=== PATIENT | male | born 1960 | race African-American/Black ===

== ENCOUNTER 2020-05-10 09:35 | Observation (INO) | payer OTHER, SELFPAY ==
--- NOTE | 2020-05-10 10:54 | RAD ---
RADIOGRAPH CHEST 1 VIEW: DATE: 05/10/2020 HISTORY: 60-year-old male with chest pain FINDINGS: There are no airspace densities, pulmonary edema, pneumothorax, or cardiomegaly. The lateral costophr enic angles are sharp. IMPRESSION: No acute cardiopulmonary findings.
--- NOTE | 2020-05-10 11:28 | CT ---
CT BRAIN NONCONTRAST: DATE: 05/10/2020 HISTORY: 60-year-old male with history of smoking and crack cocaine use presents with headache, right upper ex tremity and lower extremity numbness, and right facial numbness. Concern for stroke. FINDINGS: There is no evidence of acute intra-axial or extra-axial hemorrhage. There is no midline shift or any other mass effect. There is no extra-axial fluid collection. The ventricles are normal in size and configuration. The tympanomastoid cavities, and the upper portions of the paranasal sinuses included in these images, are grossly clear. Calvarium is intact. IMPRESSION: Normal.
[2020-05-10 11:33] LABS: #Basophils 0.1 thou/uL (0.0-0.2); #Eosinphils 0.1 thou/uL (0.0-0.7); #Lymphocytes 1.5 thou/uL (1.20-3.40); #Monocytes 0.5 thou/uL (0.11-0.59); #Neutrophils 6.2 thou/uL (1.40-6.50); %Basophils 0.9 % (0.0-1.0); %Eosinophils 0.6 % (0.0-10.0); %Lymphocytes 17.6 % (21.0-51.0); %Monocytes 5.7 % (0.0-10.0); %Neutrophils 75.2 % (42.0-75.0); Hemoglobin 17.3 g/dL (14.0-18.0); Mean Corpuscular HGB CONC 31.5 g/dL (32.0-36.0); Mean Corpuscular Hemoglobin 29.8 pg (27.0-31.0); Mean Corpuscular Volume 94.8 fL (78.0-98.0); Platelet Count 331 thou/uL (130-400); RBC Distribution Width 12.8 % (11.5-14.5); Red Blood Cell (RBC) Count 5.81 mill/uL (4.70-6.10); White Blood Cell (WBC) Count 8.2 thou/uL (4.8-10.8)
[2020-05-10 11:34] LABS: Bilirubin Negative (Negative); Blood, Urine Negative (Negative); Clarity Clear (Clear); Glucose, Urine (Dipstick) Normal (Negative); Ketone, Urine 60 mg/dL (Negative); Leukocyte Negative Leu/uL (Negative); Nitrite Negative (Negative); Protein, Urine (Dipstick) 20 mg/dL (Neg-Trace); Specific Gravity, Urine 1.035 (1.002-1.036); Urobilinogen Normal mg/dL (Less than 2); pH, Urine 5.5 (5.0-9.0)
[2020-05-10] MEDS ORDERED: Aspirin Chewable 81 MG TAB ONE (12:05)
[2020-05-10 13:16] LABS: ALT (SGPT) 14 U/L (8-55); AST (SGOT) 16 U/L (5-34); Albumin 4.5 g/dL (3.5-5.0); Alkaline Phosphatase 70 U/L (40-110); Anion Gap 17 mmol/L (10-20); BUN (Urea Nitrogen) 11 mg/dL (8.4-25.7); Bilirubin, Total 0.6 mg/dL (0.2-1.2); Calc. Creatinine Clearance 0 mL/min (70-130); Calcium 9.8 mg/dL (7.8-10.44); Carbon Dioxide 22 mmol/L (22-29); Chloride 106 mmol/L (98-107); Estimated GFR-MDRD 85; Globulin 3.6 g/dL (2.4-3.5); Glucose 98 mg/dL (70-105); Potassium 4.2 mmol/L (3.5-5.1); Protein, Total 8.1 g/dL (6.0-8.3); Sodium 141 mmol/L (136-145)
--- NOTE | 2020-05-10 13:29 | PDOC.HHP ---
Hospitalist HPI - History of Present Illness Right-sided paresthesias History of Present Illness: PCP: None The patient is a 60-year-old male with a past medical history of drug abuse and smoking that presents to the emergency department for the above complaint. The patient reports that he has had right facial, right upper extremity and right lower extremity paresthesias "off/on" for the past 2 years. He reports in that time period, it could come and go once a month. Then over the past several days, he reports that his right-sided paresthesias have been more frequent. Last night, reports that his right face, right upper extremity and right lower extremity felt tingly. He admits to using crack cocaine 4 days ago. He has an associated frontal headache with a gradual onset. Denies any neck stiffness or fever. No known trauma. Denies any focal motor weakness, difficulty swallowing, or change in speech. He denies any chest pain, heart palpitations, lightheadedness. He denies any shortness of breath, wheezing, orthopnea. No history of HTN, DM 2, HLD. Denies any abdominal pain, nausea, vomiting, diarrhea or blood in stool. Denies any dysuria or discharge from the penis. He has no further complaints at this time. ED Course: VITAL SIGNS [place] May 10, 2020 09:36 CARLOS A Mariscal Dannette BP: 131/95, Pulse: 84, Resp: 20, Temp: 98.2 (Oral), O2 sat: 99 on (Room Air), Time: 05/10/2020 09:36. VITAL SIGNS MonMay 10, 2020 10:39 CARLOS A Evans Shelley BP: 154/94, MAP: 114, Pulse: 65, Resp: 20, Pain: 8headache, O2 sat: 100 on (Room Air), Time: 05/10/2020 10:39. VITAL SIGNS MonMay 10, 2020 11:00 CARLOS A Evans Shelley BP: 168/101, MAP: 123, Pulse: 74, Resp: 20, Pain: 8headache, O2 sat: 100 on (Room Air), Time: 05/10/2020 11:00. VITAL SIGNS MonMay 10, 2020 11:30 CARLOS A Evans Shelley BP: 125/92, MAP: 103, Pulse: 65, Resp: 16, Pain: 8calm, O2 sat: 100 on (Room Air), Time: 05/10/2020 11:30. VITAL SIGNS [place] May 10, 2020 11:44 CARLOS A Evans Shelley Temp: 98.2 (Oral), Time: 05/10/2020 11:44. VITAL SIGNS [place] May 10, 2020 12:47 CARLOS A Evans Shelley BP: 163/102, MAP: 122, Pulse: 66, Resp: 19, Temp: 98.3 (Oral), Pain: 8resting, O2 sat: 100 on (Room Air), Time: 05/10/2020 12:47. Medication administration: Baby Aspirin 324 mg Oral Given 12:00 05/10/2020 Hospitalist ROS - Review of Systems All other systems reviewed; all pertinent +/- noted in HPI/Subj - Medication Medications: None Allergies: None Hospitalist History - Past Medical History Source: patient, RN notes reviewed Cardiac: reports: no pertinent history Pulmonary: reports: no pertinent history - Past Surgical History Past Surgical History: reports: no pertinent history - Family History Family History: reports: cardiac disorder (Sister), cerebrovascular accident (Mother) - Social History Smoking Status: Current every day smoker (Half pack per day x20 years) Alcohol: reports: None Drugs: reports: cocaine (Crack, last use 4 days ago) Living Situation: With Family (Lives with megan) Activity level: independent ambulation - Exam General Appearance: NAD, awake alert. negative: ill appearing Eye: PERRL, anicteric sclera ENT: normocephalic atraumatic Neck: supple, symmetric, no JVD Heart: RRR, no murmur, no gallops, no rubs, normal peripheral pulses Respiratory: CTAB, no wheezes, no rales, no ronchi, normal chest expansion, no tachypnea Gastrointestinal: soft, non-tender, normal bowel sounds, no guarding, no rigidity Extremities: no cyanosis, no edema Skin: no rashes Neurological: no weakness. negative: normal sensation to touch, facial droop, speech deficit, vision deficit Neurological - other findings: RUE/RLE decreased sensation Psychiatric: normal affect, A&O x 3 Hospitalist Results - Labs Result Diagrams: 05/10/20 11:03 05/10/20 12:31 Lab results: WBC 8.2 thou/uL (4.8-10.8) 05/10/20 11:03 Hgb 17.3 g/dL (14.0-18.0) 05/10/20 11:03 Hct 55.1 % (42.0-52.0) H 05/10/20 11:03 MCV 94.8 fL (78.0-98.0) 05/10/20 11:03 Plt Count 331 thou/uL (130-400) 05/10/20 11:03 Neutrophils % 75.2 % (42.0-75.0) H 05/10/20 11:03 Sodium 141 mmol/L (136-145) 05/10/20 12:31 Potassium 4.2 mmol/L (3.5-5.1) 05/10/20 12:31 Chloride 106 mmol/L (98-107) 05/10/20 12:31 Carbon Dioxide 22 mmol/L (22-29) 05/10/20 12:31 BUN 11 mg/dL (8.4-25.7) 05/10/20 12:31 Creatinine 1.08 mg/dL (0.7-1.3) 05/10/20 12:31 Glucose 98 mg/dL (70-105) 05/10/20 12:31 Calcium 9.8 mg/dL (7.8-10.44) 05/10/20 12:31 Total Bilirubin 0.6 mg/dL (0.2-1.2) 05/10/20 12:31 AST 16 U/L (5-34) 05/10/20 12:31 ALT 14 U/L (8-55) 05/10/20 12:31 Alkaline Phosphatase 70 U/L (40-110) 05/10/20 12:31 Troponin I 0.012 ng/mL (< 0.028) 05/10/20 11:03 B-Natriuretic Peptide Less than 10.0 pg/mL (0-100) 05/10/20 11:03 Serum Total Protein 8.1 g/dL (6.0-8.3) 05/10/20 12:31 Albumin 4.5 g/dL (3.5-5.0) 05/10/20 12:31 Urine Ketones 60 mg/dL (Negative) A 05/10/20 11:00 Urine Blood Negative (Negative) 05/10/20 11:00 Urine Nitrite Negative (Negative) 05/10/20 11:00 Ur Leukocyte Esterase Negative Jose/uL (Negative) 05/10/20 11:00 - EKG Interpretation EK lead EKG interpreted by Emergency Department Physician at time of study, 12 lead EKG shows normal sinus rhythm, Rate (beats per minute): 75, with no ectopics, Conduction normal, ST segments normal, T waves normal, [place] normal, Clinical impression: Normal EKG, no stemi - Radiology Interpretation CT scan - head Status: report reviewed by me Additional Comment: IMPRESSION: Normal. Chest x-ray Status: report reviewed by me Additional Comment: no acute cardiopulmonary process Hospitalist H&P A/P - Problem (1) Paresthesias Code(s): R20.2 - PARESTHESIA OF SKIN Status: Acute (2) Drug abuse Code(s): F19.10 - OTHER PSYCHOACTIVE SUBSTANCE ABUSE, UNCOMPLICATED Status: Chronic (3) Tobacco abuse Code(s): Z72.0 - TOBACCO USE Status: Chronic (4) Cocaine abuse Code(s): F14.10 - COCAINE ABUSE, UNCOMPLICATED Status: Acute - Plan Plan: 60/M with PMH of crack cocaine use and smoking presents for right-sided paresthesias. Admit to stroke unit, observation status. Expected length of stay greater than 2 midnights. Presented NL BP, HR, RR, SPO2, afebrile. EKG NSR, no ST elevations. CT brain negative for acute process. CXR no acute process. Troponin negative, BNP less than 10. NIH 1 Given aspirin. #Paresthesias, right-sided Rule out stroke. Order MRI, CD US, echocardiogram. Consult neurology and PT. Continue aspirin. Start statin. Check TSH, mag, FLP, folic acid and B12, UDS. Trend troponins. Permissive hypertension. #Drug abuse Abuses crack cocaine, last usage 4 days ago. Check UDS. #Tobacco abuse Half pack per day x20 years. Unwilling to quit. NRT therapy. Counseled tobacco cessation. SCDs for DVT prophylaxis. No GI prophylaxis. Full code. Contact his Surekha guzman at [phone]. Discussed the case with Dr. Geller.
[2020-05-10] MEDS ORDERED: Labetalol HCl 100 MG/20 ML VIAL SLOW IVP PRN (13:34)
[2020-05-10] MEDS ORDERED: hydrALAZINE 20 MG/ML VIAL SLOW IVP PRN (13:34)
[2020-05-10] MEDS ORDERED: Ondansetron ODT 4 MG TAB PO PRN (13:37)
[2020-05-10] MEDS ORDERED: Ondansetron PF 4 MG/2 ML Vial IVP PRN (13:37)
[2020-05-10] MEDS ORDERED: Acetaminophen 325 MG TAB PO PRN (13:37)
[2020-05-10] MEDS ORDERED: Ondansetron PF 4 MG/2 ML Vial ONE (13:40)
[2020-05-10] MEDS ORDERED: Metoclopramide HCl 10 MG/2 ML VIAL ONE (13:47)
[2020-05-10] MEDS ORDERED: diphenhydrAMINE 50 MG/ML VIAL ONE (13:47)
[2020-05-10 13:59] LABS: Amphetamine Not Detected (NotDetected); Barbiturates Screen Not Detected (NotDetected); Benzodiazepine Screen Not Detected (NotDetected); Cocaine Metabolite Screen Detected (NotDetected); Medtox Control Line Valid? VALID (VALID); Medtox Reader # READER 4; Methadone Not Detected (NotDetected); Methamphetamine Not Detected (NotDetected); Opiate Screen Not Detected (NotDetected); Oxycodone Screen Not Detected (NotDetected); Phencyclidine (PCP) Not Detected (NotDetected); THC/Cannabinoid Screen Not Detected (NotDetected); Tricyclic Screen Not Detected (NotDetected)
[2020-05-10 14:51] LABS: Troponin I Less than 0.010 ng/mL (< 0.028)
[2020-05-10 16:53] VITALS: BMI 25.2
[2020-05-10] MEDS: Nicotine 14 MG PATCH TD SCH (17:19)
--- NOTE | 2020-05-10 17:31 | ULT ---
US Carotid Doppler STANDARD History: Right paresthesias Comparison: None. Findings: Real-time grayscale, color and spectral analysis of the extracranial carotid and vertebral arteries was performed. No significant calcific plaque. Antegrade flow both vertebral arteries. No elevated peak systolic felecia ocities within the internal carotid arteries. Impression: No hemodynamically significant stenosis.
[2020-05-10 19:10] LABS: Troponin I Less than 0.010 ng/mL (< 0.028)
[2020-05-10] MEDS ORDERED: Atorvastatin Calcium 40 MG TAB PO SCH (21:00)
[2020-05-11 05:14] LABS: #Basophils 0.1 thou/uL (0.0-0.2); #Eosinphils 0.1 thou/uL (0.0-0.7); #Lymphocytes 2.2 thou/uL (1.20-3.40); #Monocytes 0.7 thou/uL (0.11-0.59); #Neutrophils 6.3 thou/uL (1.40-6.50); %Basophils 0.7 % (0.0-1.0); %Eosinophils 0.9 % (0.0-10.0); %Lymphocytes 23.6 % (21.0-51.0); %Neutrophils 67.8 % (42.0-75.0); Mean Corpuscular HGB CONC 32.5 g/dL (32.0-36.0); Mean Corpuscular Hemoglobin 30.7 pg (27.0-31.0); Mean Corpuscular Volume 94.6 fL (78.0-98.0); Mean Platelet Volume 7.1 fL (7.4-10.4); Platelet Count 287 thou/uL (130-400); RBC Distribution Width 11.6 % (11.5-14.5); Red Blood Cell (RBC) Count 5.22 mill/uL (4.70-6.10); White Blood Cell (WBC) Count 9.2 thou/uL (4.8-10.8)
[2020-05-11 05:36] LABS: Anion Gap 13 mmol/L (10-20); BUN (Urea Nitrogen) 14 mg/dL (8.4-25.7); Calc. Creatinine Clearance 80 mL/min (70-130); Carbon Dioxide 23 mmol/L (22-29); Cardiac Risk 3.8 (Less than 4.5); Chloride 107 mmol/L (98-107); Cholesterol 163 mg/dl (< 200 Desired); Estimated GFR-MDRD 90; Glucose 99 mg/dL (70-105); HDL Cholesterol 43 mg/dL (>60 Neg Risk); LDL Cholesterol, Calculated 103 mg/dL; Potassium 4.1 mmol/L (3.5-5.1); Sodium 139 mmol/L (136-145); Triglycerides 85 mg/dL (Less than 150)
[2020-05-11] MEDS ORDERED: Aspirin 325 mg Enteric Coated Tablet PO SCH (09:00)
[2020-05-11] MEDS ORDERED: FLU VACC QS2020-21(6MOS UP)/PF 60 MCG/0.5 ML SYRINGE IM ONE (09:00)
--- NOTE | 2020-05-11 11:45 | MRI ---
MRI BRAIN WITHOUT CONTRAST: HISTORY: TIA, headache CORRELATION: CT scan from 05/10/2020. FINDINGS: No restricted diffusion is seen.The ventricular size is appropriate and the basilar cisterns are lama nt. No evidence of acute infarct, hemorrhage, midline shift or abnormal extra-axial fluid collections is seen. There is mild mucosal disease in the paranasal sinuses. IMPRESSION: No evidence of acute intracranial process.
--- NOTE | 2020-05-11 12:32 | CON ---
NEUROLOGY CONSULTATION DATE OF CONSULTATION: 05/11/2020 REASON FOR CONSULTATION: Right-sided paresthesias with headache. HISTORY OF PRESENT ILLNESS: Mr. David Fernando is a 60-year-old male with medical history significant for drug abuse and nicotine abuse, presented to the emergency room with right-sided paresthesias associated with headache. Per the patient, he has had right facial numbness and right upper and lower extremity paresthesias off and on since the last 2 years, but they have been worse since the last night prior to the admission. The patient also noted he used crack cocaine 4 days ago. He describes it as a frontal headache, which varies in intensity, and at some point, he has paresthesias of the left upper extremity too. The patient denies any motor weakness, focal weakness, nausea, vomiting, chest pain, abdominal pain, problems with swallowing or speech, nausea, abdominal pain, loss of taste or smell associated with the episode. He denies any recent sick contact or exposure to COVID. In the emergency room, he was given aspirin and admitted for further stroke workup. REVIEW OF SYSTEMS: All 14 systems were reviewed and were negative except the pertinent positives and negatives mentioned in the HPI. HOME MEDICATIONS: None. ALLERGIES: NO KNOWN DRUG ALLERGIES. PAST MEDICAL HISTORY: Not significant. PAST SURGICAL HISTORY: Not significant. FAMILY HISTORY: Significant for coronary artery disease and cerebrovascular accident. SOCIAL HISTORY: The patient lives with [facility]. He has independent ambulation. He uses crack and smokes half a pack per day for the last 20 years. PHYSICAL EXAMINATION: VITAL SIGNS: Blood pressure 130/90, pulse 80, respiratory rate 18 General Appearance: NAD, awake alert. negative: ill appearing Eye: PERRL, anicteric sclera ENT: normocephalic atraumatic Neck: supple, symmetric, no JVD Heart: RRR, no murmur, no gallops, no rubs, normal peripheral pulses Respiratory: CTAB, no wheezes, no rales, no ronchi, normal chest expansion, no tachypnea Gastrointestinal: soft, non-tender, normal bowel sounds, no guarding, no rigidity Extremities: no cyanosis, no edema Skin: no rashes Neurological: : Mental status: The patient is alert and oriented to person, place, and time. Recent and remote memory, intact. Fund of knowledge is appropriate. Speech is clear. Cranial nerves 2 through 12 intact. Motor: Muscle tone and bulk are normal. Moving all 4 extremities equally and symmetrically. Sensory: Decreased sensation in the right upper and lower extremity to touch, and he also has decreased sensation in the left upper extremity. DATA REVIEWED: I reviewed the CT scan, which was negative for acute intracranial pathology. A 12-lead EKG showed normal sinus rhythm. Chest x-ray did not reveal any acute cardiopulmonary process. Brain MRI reviewed, which was negative for acute intracranial process. Lab results: WBC 8.2 thou/uL (4.8-10.8) 05/10/20 11:03 Hgb 17.3 g/dL (14.0-18.0) 05/10/20 11:03 Hct 55.1 % (42.0-52.0) H 05/10/20 11:03 MCV 94.8 fL (78.0-98.0) 05/10/20 11:03 Plt Count 331 thou/uL (130-400) 05/10/20 11:03 Neutrophils % 75.2 % (42.0-75.0) H 05/10/20 11:03 Sodium 141 mmol/L (136-145) 05/10/20 12:31 Potassium 4.2 mmol/L (3.5-5.1) 05/10/20 12:31 Chloride 106 mmol/L (98-107) 05/10/20 12:31 Carbon Dioxide 22 mmol/L (22-29) 05/10/20 12:31 BUN 11 mg/dL (8.4-25.7) 05/10/20 12:31 Creatinine 1.08 mg/dL (0.7-1.3) 05/10/20 12:31 Glucose 98 mg/dL (70-105) 05/10/20 12:31 Calcium 9.8 mg/dL (7.8-10.44) 05/10/20 12:31 Total Bilirubin 0.6 mg/dL (0.2-1.2) 05/10/20 12:31 AST 16 U/L (5-34) 05/10/20 12:31 ALT 14 U/L (8-55) 05/10/20 12:31 Alkaline Phosphatase 70 U/L (40-110) 05/10/20 12:31 Troponin I 0.012 ng/mL (< 0.028) 05/10/20 11:03 B-Natriuretic Peptide Less than 10.0 pg/mL (0-100) 05/10/20 11:03 Serum Total Protein 8.1 g/dL (6.0-8.3) 05/10/20 12:31 Albumin 4.5 g/dL (3.5-5.0) 05/10/20 12:31 Urine Ketones 60 mg/dL (Negative) A 05/10/20 11:00 Urine Blood Negative (Negative) 05/10/20 11:00 Urine Nitrite Negative (Negative) 05/10/20 11:00 Ur Leukocyte Esterase Negative Ojse/uL (Negative) 05/10/20 11:00 - EKG Interpretation EK lead EKG interpreted by Emergency Department Physician at time of study, 12 lead EKG shows normal sinus rhythm, Rate (beats per minute): 75, with no ectopics, Conduction normal, ST segments normal, T waves normal, [place] normal, Clinical impression: Normal EKG, no stemi - Radiology Interpretation CT scan - head Status: report reviewed by me Additional Comment: IMPRESSION: Normal. Chest x-ray Status: report reviewed by me Additional Comment: no acute cardiopulmonary process ASSESSMENT AND PLAN: (1) Paresthesias Code(s): R20.2 - PARESTHESIA OF SKIN Status: Acute (2) Drug abuse Code(s): F19.10 - OTHER PSYCHOACTIVE SUBSTANCE ABUSE, UNCOMPLICATED Status: Chronic (3) Tobacco abuse Code(s): Z72.0 - TOBACCO USE Status: Chronic (4) Cocaine abuse Code(s): F14.10 - COCAINE ABUSE, UNCOMPLICATED Status: Acute . Mr. David Fernando is a 60-year-old male with history significant for drug and nicotine abuse, presented with focal paresthesias on the right associated with headache and also at times paresthesias radiating to the left upper extremity. The patient does have history of a cervical injury, so we will proceed with MRI of the cervical spine. MRI of the brain reviewed and was negative for acute intracranial process. Carotid Dopplers did not reveal hemodynamically significant stenosis. Continue aspirin and high-intensity statin for secondary stroke prevention. The patient counseled about cocaine and nicotine abuse and the associated risk with stroke. Neuro checks every 4 hours. Continue headache management. 2D echo completed. No thrombus or PFO. We will follow up on the results. Continue telemetry. Physical Therapy/Occupational Therapy/Speech. Continue medical management per primary team. We will continue to follow. Thank you for the consult. Job ID: [id number] MTDD
--- NOTE | 2020-05-11 13:13 | MRI ---
MRI cervical spine noncontrast: 05/11/2020 HISTORY: 60-year-old male with cervicalgia and bilateral cervical radiculopathy Dr. Goldberg discussed the findings by telephone with Dr. 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 This is exacerbated by cervical spondylosis as described below. Vertebral body heights are maintained. Mild to moderate disc space narrowing, and broad-based disc protrusions or disc-osteophyte complexes, extending into the anterior aspect of the spinal canal, at C3-4, C4-5, C5-6, and C6-7, indenting the ventral aspect of the spinal cord at C3-4, C4-5, and to a lesser degree C5-6. There is a broad posterior extradural fluid collection (T1 hypointense and T2 hyperintense,) at poste rior midline extending into the bilateral posterior lateral spinal canal, right greater than left,, which begins at the lower C2 level, and extends down to the C5-6 level; which broadly indents the cindy elsy surface of the spinal cord from C3 through mid C5 levels. There is patchy, extensive intramedullary T2 hyperintense signal involving the majority of the cross- sectional area of the spinal cord, from C2-C3 level to lower C3 level. C1-2: No central spinal canal stenosis. C2-3: Moderate central spinal canal stenosis. No high-grade neural foraminal stenosis. Disc space abby ntained. No high-grade facet DJD. C3-4: Mild to moderate disc space narrowing. Broad-based disc herniation or disc-osteophyte complex m arkedly indents the spinal cord. Posterior extradural fluid collection also broadly indents the spinal cord. Spinal cord is flattened significantly in the AP dimension. CSF signal is completely eff aced. Severe thecal sac stenosis. Small bilateral uncinate process osteophytes. Moderate to severe right neural foraminal stenosis. Mild left neural foraminal stenosis. No significant facet DJD. C4-5: Broad-based disc herniation or disc-osteophyte complex plus right paracentral focal disc hernia tion indents the spinal cord anteriorly. Posterior extradural fluid collection broadly abuts and indents the spinal cord. Spinal cord flattening in AP dimension. CSF signal effaced. Severe thecal sa c stenosis. Moderate size right uncinate process osteophytes cause severe right neural foraminal stenosis. Small left uncinate process osteophytes cause moderate to severe left neural foraminal sten osis. No facet DJD. C5-6: Focal central small disc herniation or disc-osteophyte complex indents the ventral surface of s [place]ak cord. Moderate central spinal canal stenosis. Small bilateral uncinate process osteophytes. No high-grade neural foraminal stenosis. Normal facet joints. C6-7: Shallow broad-based disc herniation or disc-osteophyte complex indents ventral surface of theca l sac but does not contact spinal cord. Moderate central spinal canal stenosis. Moderate size bilateral uncinate process osteophytes. Moderate to severe right and mild left neural foraminal steno sis. C7-T1: Mild right and moderate left facet DJD. No significant neural foraminal stenosis. No central s deepak canal stenosis. IMPRESSION: 1.) Cord compression and severe thecal sac stenosis at C3-4 and C4-5 due to combination of posterior extradural fluid collection and anterior broad-based disc herniations or disc-osteophyte complexes, resulting in severe flattening of the spinal cord. This is presumed to be chronic, based on the fact that the patient does not have acute myelopathy, according to the pathologist. 2) somewhat severe intramedullary signal abnormality in the upper spinal cord from lower C2 to lower C3 levels. Again, based on the fact that the patient does not have acute myelopathy, this is favored to represent myelomalacia rather than cord edema. 3) cervical spondylosis consisting of multilevel degenerative disc disease and multilevel high-grade bilateral neural foraminal stenosis. 5) the nature of the posterior extradural fluid collection is uncertain. 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
[2020-05-11] MEDS: Nicotine 14 MG PATCH TD SCH (15:36)
[2020-05-11 15:57] VITALS: TEMP 98.3
[2020-05-11 16:11] LABS: SARS-CoV-2 MS2 Positive; SARS-CoV-2 N Gene Negative; SARS-CoV-2 S Gene Negative; SARS-CoV-2 by NAA Not Detected (NotDetected); SARS-CoV-2 orf1ab Negative
[2020-05-11 17:10] VITALS: BP 157/109
--- NOTE | 2020-05-11 20:32 | DIS ---
DATE OF ADMISSION: 05/10/2020 DATE OF DISCHARGE: 05/11/2020 DISCHARGE DIAGNOSES: 1. Bilateral upper limb paresthesia. 2. Tobacco abuse. 3. Cocaine abuse. BRIEF HOSPITAL COURSE: This is a 60-year-old male patient with a history of drug abuse and smoking, who presents with bilateral upper limb paraesthesia on the day of admission. Initial assessment due to brain CT scan due to concern for stroke was negative. Neurology was consulted. MRI of head and neck was ordered given concerns of history of neck injury. These were both, however, negative. Neurosurgery was considered, however decided to have the patient follow up on outpatient basis. He was discharged to follow up with Neurology and Neurosurgery. DISCHARGE PHYSICAL EXAMINATION: GENERAL: The patient is in bed, in no acute distress. CARDIOVASCULAR SYSTEM: S1 and S2 present and normal. No murmurs, gallops, or rubs. RESPIRATORY SYSTEM: Air entry adequate bilaterally. No rales or rhonchi. ABDOMEN: Benign. EXTREMITIES: No edema or cyanosis. NEUROLOGIC: Power 5/5 in upper and lower limbs. No numbness or paraesthesia noted. DISCHARGE CONDITION: Stable. CONSULTANTS: Dr. Smith - Neurology. Job ID: [id number] [facility]
--- NOTE | 2020-05-16 13:09 | EKG ---
Test Reason : Blood Pressure : / mmHG Vent. Rate : 075 BPM Atrial Rate : 075 BPM P-R Int : 128 ms QRS Dur : 074 ms QT Int : 396 ms P-R-T Axes : 085 059 081 degrees QTc Int : 442 ms Poor data quality, interpretation may be adversely affected Normal sinus rhythm Biatrial enlargement Abnormal ECG Confirmed by MINDY ROBBINS M.D. ([id number]), social media editor JA HOYT ([id number]) on 05/16/2020 1:08:44 PM Referred By: Confirmed By:MINDY ROBBINS M.D.
== END 2020-05-11 20:41 | disposition home or self-care (01) ==
LOC: ERS 09:35 → 2SE 13:39
PROVIDERS: ADMIT Student in an Organized Health Care Education/Training Program; ATTEND Student in an Organized Health Care Education/Training Program
DX: R20.2 Paresthesia of skin (principal); R51.9 Headache, unspecified; F17.210 Nicotine dependence, cigarettes, uncomplicated; F14.10 Cocaine abuse, uncomplicated; Q76.49 Other congenital malformations of spine, not associated with scoliosis; M47.812 Spondylosis without myelopathy or radiculopathy, cervical region; M47.22 Other spondylosis with radiculopathy, cervical region; M47.12 Other spondylosis with myelopathy, cervical region; M50.01 Cervical disc disorder with myelopathy, high cervical region; M50.11 Cervical disc disorder with radiculopathy, high cervical region; M48.02 Spinal stenosis, cervical region; Z20.828 Contact with and (suspected) exposure to other viral communicable diseases
CPT/HCPCS: 36415; 70450; 70551; 71045; 72141; 80048; 80053; 80061; 80306; 81003; 82607; 82746; 83735; 83880; 84443; 84484; 85025; 87635; 90471; 90662; 90732; 93005; 93306; 93880; 96365; 96375; G0008; G0009; G0378; J1200; J2405; J2765; U0003

== ENCOUNTER 2022-08-02 17:24 | Emergency (ER) | payer OTHER, SELFPAY | END 2022-08-02 20:47 | disposition home or self-care (01) | LOC: ERS 17:24 | DX: R42 Dizziness and giddiness (principal); F17.210 Nicotine dependence, cigarettes, uncomplicated; V89.2XXA Person injured in unspecified motor-vehicle accident, traffic, initial encounter | CPT/HCPCS: 99284 ==